=== PATIENT | female | born 1955 | race African-American/Black ===

== ENCOUNTER 2017-08-09 13:52 | Emergency (ER) | payer MEDICARE, OTHER | END 2017-08-09 14:42 | disposition home or self-care (01) | LOC: E/R 13:52 | DX: K11.20 Sialoadenitis, unspecified (principal); I50.9 Heart failure, unspecified; I10 Essential (primary) hypertension; Z87.891 Personal history of nicotine dependence; Z79.84 Long term (current) use of oral hypoglycemic drugs | CPT/HCPCS: 99283 ==